=== PATIENT | male | born 1975 | race Caucasian/White ===

== ENCOUNTER 2019-06-21 17:40 | Inpatient (IN) | payer SELFPAY ==
[2019-06-21 17:45] VITALS: BP 154/108; PULSE 104; RESP 16; O2SAT 96; BMI 22.4
--- NOTE | 2019-06-21 17:59 | ED_ITS ---
Entered by Kita Mcbride, acting as scribe for EugenioEmperatriz HPI - Psych General: Chief Complaint: Psychiatric Symptoms Stated Complaint: mhe Time Seen by Provider: 06/21/19 17:56 Source: patient, RN notes reviewed and police Mode of arrival: other (police) Limitations: altered mental status History of Present Illness: HPI Narrative: 43 yo male presents to ED with police for psychiatric care. The patient is rambling and is a poor historian. He does understand that he is here under a court ordered 96 hour hold. The patient did say he has had some family issues. Review of Systems General: Reports: ROS unobtainable due to mental status PFSH ED PFSH: Social History Smoking and tobacco status: current every day smoker Physical Exam Const: COMMON NORMALS: no apparent distress, oriented x3, no limitations, healthy appearing and well nourished EXAM LIMITATIONS: no altered mental status GENERAL APPEARANCE: cooperative, well kempt and well developed ORIENTATION/CONSCIOUSNESS: Yes awake HENMT: COMMON NORMALS: normocephalic, head/scalp atraumatic, hearing grossly normal bilaterally, external ears normal, EAC's normal, external nose normal and moist oral mucous membranes HEAD & SCALP: normal to inspection, normocephalic and atraumatic FACE & SINUS: normal facial exam and face symmetric NOSE: external nose normal and nares normal EXTERNAL EAR: Yes external ears normal EXTERNAL AUDITORY CANAL: EAC's normal MOUTH: oral and palatal mucosa normal and tongue normal Eye: COMMON NORMALS: PERRL, EOMs intact bilaterally, conjunctivae normal and no scleral icterus GENERAL EYE: normal appearance of both eyes and normal light reflex CONJUNCTIVA: Yes conjunctivae normal SCLERA: sclerae normal CORNEA: Yes corneas normal PUPIL: Yes PERRL DIRECT OPHTHALMOSCOPY: Yes normal light reflex Neck/C-Spine: COMMON NORMALS: full ROM, no lymphadenopathy, supple, no meningeal signs and no JVD GENERAL: Yes normal visual inspection and Yes trachea midline CERVICAL SPINE: Yes cervical ROM normal Chest: COMMONS NORMALS: inspection of chest normal and palpation of chest normal Resp: COMMON NORMALS: normal respiratory effort, no retractions, no use of accessory muscles and clear to auscultation bilaterally EFFORT & INSPECTION: Yes able to speak in complete sentences AUSCULTATION: clear to auscultation bilaterally Cardio: COMMON NORMALS: no JVD, regular rate, regular rhythm, S1 normal heart sound, S2 normal heart sound, no gallops, no clicks, no murmurs and no rub JUGULAR VENOUS DISTENTION: no JVD RATE: regular rate RHYTHM: regular rhythm HEART SOUNDS: S1 normal and S2 normal GI: COMMON NORMALS: soft to palpation, non-tender, no hepatosplenomegaly and no masses INSPECTION: Yes normal to inspection PALPATION: Yes soft and Yes no hepatosplenomegaly : COMMON NORMALS: Yes no CVA tenderness BLADDER/KIDNEY EXAM: Yes no CVA tenderness Back/Pelvis: COMMON NORMALS: no CVA tenderness, thoracic and lumbar spine normal to inspection, no thoracic nor lumbar tenderness and thoraco-lumbar ROM normal Extremity: COMMON NORMALS: normal to inspection, full ROM, normal capillary refill, no joint enlargement, no clubbing, cyanosis or edema and no calf tenderness Neuro: COMMON NORMALS: oriented x3, CN's II-XII intact bilaterally, moves all extremities, no focal motor deficits and no sensory deficits noted MENINGEAL SIGNS: Yes no meningeal signs Psych: COMMON NORMALS: mental status grossly normal, thought process normal, cooperative, affect normal, speech normal and activity/motor behavior normal APPEARANCE: Yes well kempt SPEECH: Yes normal speech THOUGHT PROCESS: normal thought process Skin: COMMON NORMALS: no rashes or lesions noted, skin turgor normal, no jaundice, no petechiae and no mottling GENERAL SKIN EXAM: no rashes or lesions noted and turgor normal MDM - Psych MDM Narrative: Medical decision making narrative: The case was reviewed with Dr. Giron and he agrees to accept the patient for admission. Lab Data: Labs: Lab Results 06/21/19 Range/Units 18:20 WBC 11.0 H (4.0-10.0) 10^3/ uL RBC 5.38 H (4.1-5.3) 10^6/u L Hgb 15.8 (11.7-16.6) g/dL Hct 47.2 (42.0-52.0) % MCV 87.7 (80-94) fL MCH 29.4 (28.0-34.0) pg MCHC 33.5 (30.0-36.0) g/dL RDW 12.9 (12.1-15.1) % Plt Count 411 H (130-400) 10^3/c mm MPV 10.9 H (7.4-10.4) fL Neut % (Auto) 63.5 % Lymph % (Auto) 21.5 % [place] % (Auto) 8.8 % Eos % (Auto) 4.7 % Baso % (Auto) 1.2 % Neut # (Auto) 7.0 (1.8-7.7) 10^3/u L Lymph # (Auto) 2.4 (0.8-4.8) 10^3/u L [place] # (Auto) 1.0 H (0.2-0.9) 10^3/u L Eos # (Auto) 0.5 (0.0-0.8) 10^3/u L Baso # (Auto) 0.1 (0.0-0.1) 10^3/u L Nucleated RBC % (a uto) 0 % Nucleated RBCs # 0.0 /100WBC EKG Data^: EKG 1: Attestation: I personally reviewed and interpreted this EKG as follows: EKG interpretation date: 06/21/19 EKG interpretation time: 18:26 Interpretation: Normal sinus rhythm at 86 beats a minute, no acute ST-T wave changes. Discharge Plan Discharge Patient Disposition: Admitted As Inpatient Clinical Impression: Homicidal ideation, Acute psychosis Condition: Stable Coding Level of Care Code ED Chief Hospital Administrator for [facility] The documentation recorded by the Rae mitchell Valerie R, accurately reflects the service I personally performed and the decisions made by Eugenio nichole Eli N
--- NOTE | 2019-06-21 18:01 | ECG_ITS ---
Measurements Intervals [place] Rate: 86 P: 61 [place]: 153 QRS: 77 QRSD: 103 T: 58 QT: 369 QTc: 443 SINUS RHYTHM INTERPRETATION BASED ON A DEFAULT AGE OF 40 YEARS No previous ECG available for comparison Electronically Signed On 06-21-2019 20:18:47 CDT by Kristie Youssef M.D. [id number]
[2019-06-21] MEDS: haloperidol inj 5 mg/mL INJ 1 mL IM (18:16)
[2019-06-21] MEDS: diphenhydrAMINE 50 mg/mL SDV 1mL IM (18:16)
[2019-06-21 18:17] VITALS: O2SAT 96
[2019-06-21 18:29] LABS: Basophils # 0.1 10^3/uL (0.0-0.1); Basophils % 1.2 %; Eosinophils # 0.5 10^3/uL (0.0-0.8); Eosinophils % 4.7 %; Hematocrit 47.2 % (42.0-52.0); Hemoglobin 15.8 g/dL (11.7-16.6); Lymphocytes # 2.4 10^3/uL (0.8-4.8); Lymphocytes % 21.5 %; Mean Corpuscular HGB Conc 33.5 g/dL (30.0-36.0); Mean Corpuscular Hemoglobin 29.4 pg (28.0-34.0); Mean Corpuscular Volume 87.7 fL (80-94); Mean Platelet Volume 10.9 fL (7.4-10.4); Monocytes % 8.8 %; Neutrophils % 63.5 %; Nucleated Red Blood Cells % 0 %; Platelet Count 411 10^3/cmm (130-400); Red Blood Count 5.38 10^6/uL (4.1-5.3); Red Cell Distribution Width 12.9 % (12.1-15.1)
[2019-06-21 18:34] VITALS: BP 138/109; PULSE 75; RESP 16; TEMP 36.4; O2SAT 98
[2019-06-21 18:54] LABS: Alanine Aminotransferase 20 U/L (0-41); Albumin Level 4.7 g/dL (3.5-5.2); Alkaline Phosphatase 84 IU/L (40-130); Anion Gap 20.6 (5-19); Aspartate Amino Transferase 28 U/L (0-40); Blood Urea Nitrogen 19 mg/dL (6-20); Calcium 10.2 mg/dL (8.5-10.5); Carbon Dioxide 20 mmol/L (22-29); Chloride 98 mmol/L (98-107); Globulin 3.3 g/dL (1.3-4.6); Glomerular Filtration Rate 73.8 mL/min (90-130); Glucose 107 mg/dL (65-115); Osmolality Calculated 277 mOsm/kg (285-295); Phenytoin Dilantin 0.8 ug/mL (10-20); Potassium 3.6 mmol/L (3.5-5.1); Sodium 135 mmol/L (136-145); Thyroid Stimulating Hormone 0.99 uIU/mL (0.27-4.20); Total Bilirubin 0.7 mg/dL (0.15-1.2); Valproic Acid Level 2.8 mcg/mL (50-100)
[2019-06-21 18:58] LABS: Acetaminophen < 5.0 ug/mL (10-30); Alcohol Level < 10 mg/dL (0-10); Salicylate < 0.3 mg/dL (3-10)
--- NOTE | 2019-06-21 19:16 | PC.PHAR ---
UNABLE TO OBTAIN AT THIS TIME. HE HAS BEEN MEDICATED AND IS ASLEEP.
[2019-06-21 19:29] LABS: Lithium 0.1 mmol/L (0.6-1.2)
[2019-06-21 19:47] VITALS: BP 134/78; PULSE 88; RESP 16; O2SAT 98
[2019-06-21 20:02] VITALS: BP 123/87; PULSE 86; RESP 19; TEMP 36.8; O2SAT 96
[2019-06-22 06:00] VITALS: BP 117/76; PULSE 70; RESP 18; TEMP 36.8; O2SAT 99
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
[2019-06-22 14:00] VITALS: RESP 19
--- NOTE | 2019-06-22 14:00 | PC.NURSE ---
REFUSED TO LET STAFF OBTAIN VITAL SIGNS
[2019-06-22] MEDS: OLANZapine ODT 5 MG TABLET PO (14:58)
[2019-06-22] MEDS: hyDROXYzine 25 mg Capsule 50 MG PO (14:58)
--- NOTE | 2019-06-22 14:59 | PC.NURSE ---
Addendum entered by Deysi Greene LPN 06/22/19 16:01: prn meds effective no further c/o anxiety or agitation. pt asleep in bed in room currently, resp even et unlabored Original Note: PRN VISTARIL & ZYPREXA ZYDIS VISTARIL 50 MG GIVEN PO PER PT C/O ANXIETY & ZYPREXA ZYDIS 5 MG GIVEN PO PER PT C/O SEVERE AGITATION. PT CAME OUT OF ROOM, YELLING PROFANITIES AT A NURSE THAT WAS ROUNDING IN PT ROOM. PT SLAMMING HIS DOORS & THREATENING TOWARDS STAFF YELLING YOU GET THE FUCK OUT OF MY ROOM WHILE I'M IN THE BATHROOM, YOU MOTHER FUCKER! SECURITY CALLED TO UNIT. PHYSICIAN, PAROLE DIRECTOR, SECURITY TO PT ROOM TO DE-ESCALATE & ENCOURAGE THERAPEUTIC COMMUNICATION. PT OFFERED PRN MEDICATIONS & PT TOOK WILLINGLY. PT ASKED THIS MED NURSE NOW ARE THOSE XANAX? WILL CONT TO MONITOR.
--- NOTE | 2019-06-22 17:22 | PC.NURSE ---
STILL TIRING TO OBTAIN ORDERED URINE SAMPLE. NOTED PATIENT WAS UP TO GO TO BATHROOM. ENTERED ROOM WITH VANESSA Ng TO ASK PATIENT IF HE COULD GIVE US A URINE SAMPLE; ALSO ASKED HIM IF HE WOULD LIKE MORE WATER. PATIENT BEGAN YELLING PROFANITIES, TELLING ME TO EAT A SHIT SANDWICH . I ASKED AGAIN IF HE COULD GIVE US A URINE SAMPLE AT WHICH POINT PATIENT BUSTED THROUGH BATHROOM DOOR CHARGING AND THREATENING ME. HE CONTINUED TO APPROACH ME VERY AGGRESSIVELY I BACKED INTO THE LEYVA. SECURITY WAS CALLED. PATIENT RETURNED TO HIS ROOM SLAMMING HIS DOOR. SECURITY ARRIVED PATIENT SPOKE WITH DEVORAH Rn, dr. Giron and security settled patient.
[2019-06-22 22:00] VITALS: RESP 17
--- NOTE | 2019-06-22 22:08 | PC.NURSE ---
Pt refused vitals. Respirations were taken.
[2019-06-23 06:00] VITALS: RESP 16
--- NOTE | 2019-06-23 06:28 | PC.NURSE ---
Patient refused vitals. Respirations taken.
[2019-06-23] MEDS: hyDROXYzine 25 mg Capsule 50 MG PO (11:27)
--- NOTE | 2019-06-23 12:52 | P.PN_ITS ---
Subjective NPU Subjective: Interval history: Angel presented today and had a fairly rough time interacting with staff and other patients. He struggled to communicate without screaming. When I spoke to him he told some story about only sleeping about 30 minutes a day and that when I came to talk to him it was that 30 minutes. This has been the second or third time that I approached him. One time was when he was having a meltdown related to getting his meal and wanting to eat in his room with the door closed. We discussed the risks benefits and alternatives of starting medications and he responded that I was the doctor and if I thought it was a good idea that he would take it. Medications: Reviewed: Yes Mental Status Exam MSE Comments: This is a well-nourished well-developed white male with limited dress, grooming and eye contact. Toenails painted bright pink. No abnormal movements except for psychomotor agitation. Limited cooperation with exam in mild to severe distress depending on the moment. Speech was increased rate and volume. Mood described as depressed, affect congruent. Thought process mostly organized. Thought content: Patient denied any suicidal or homicidal ideation but did have significant outwardly directed aggression throughout the day, there were no delusions reported but he did appear to have some Persky Seth delusions, he denied any auditory or visual hallucinations. Attention and concentration were limited and memory appeared unreliable but none were formally tested. He is alert and oriented x3. Insight and judgment are impaired. Vitals/I&O/Wt Last Vital Signs Temp 97.8 F 06/23/19 20:18 Pulse 87 06/23/19 20:18 Resp 19 H 06/23/19 20:18 BP 100/64 06/23/19 20:18 Pulse Ox 97 06/23/19 20:18 Home Medications No Known Home Medications 06/23/19 [History Confirmed 06/23/19] Active Medications Acetaminophen (Tylenol) 650 mg PO Q4H PRN PRN Reason: MILD PAIN Last Admin: 06/23/19 14:06 Dose: 650 mg Documented by: Benztropine Mesylate (Cogentin) 1 mg PO BID PRN PRN Reason: Mild Extrapyramidal symptoms Camphor/Menthol/Phenol (Blistex) 1 applic TOPICAL Q1H PRN PRN Reason: DRYNESS Diphenhydramine HCl (Benadryl) 50 mg IM ONCE PRN PRN Reason: Severe Extrapyramidal Symptoms Diphenhydramine HCl (Benadryl) 50 mg IM Q4H PRN PRN Reason: Severe Aggression Haloperidol (Haldol) 5 mg PO Q4H PRN PRN Reason: AGITATION Haloperidol Lactate (Haldol Inj) 5 mg IM Q4H PRN PRN Reason: Severe Aggression Hydroxyzine Pamoate (Vistaril) 50 mg PO Q6H PRN PRN Reason: ANXIETY Last Admin: 06/23/19 11:27 Dose: 50 mg Documented by: Loperamide HCl (Imodium Capsule) 2 mg PO Q6H PRN PRN Reason: DIARRHEA Lorazepam (Ativan) 2 mg IM Q4H PRN PRN Reason: Severe Aggression Nicotine (Nicoderm 21 Mg Patch) 1 patch TRANSDERMA DAILY PRN PRN Reason: NICOTINE WITHDRAWAL Nicotine Polacrilex (Nicorette) 2 mg BUCCAL Q2H PRN PRN Reason: NICOTINE WITHDRAWAL Olanzapine (Zyprexa Zydis) 5 mg PO Q4H PRN PRN Reason: Agitation/Psychosis Last Admin: 06/22/19 14:58 Dose: 5 mg Documented by: Ondansetron HCl (Zofran) 4 mg PO Q6H PRN PRN Reason: NAUSEA AND VOMITING Trazodone HCl (Desyrel) 50 mg PO BEDTIME PRN PRN Reason: SLEEP Last Admin: 06/23/19 21:00 Dose: 50 mg Documented by: Data NPU : 06/21/19 18:20 06/21/19 18:20 A&P Assessment and plan (1) Homicidal ideation: This is a 43-year-old white male with acute psychosis and aggression who presents off of medication but reportedly open to trying medication. 1. Continue current medication. Except: 2. Start Remeron 15 mg p.o. nightly and Abilify 10 mg p.o. every morning. 3. Encouraged individual, group and milieu therapy. 4. Continue to 15-minute checks for safety. Status: Acute Code(s): R45.850 - Homicidal ideations (2) Acute psychosis: Status: Acute Code(s): F23 - Brief psychotic disorder Involuntary Hold Information 96 Hour Hold: 96 Hour Involuntary Admission: Yes 96 Hour Hold Ending Date: 06/27/19 96 Hour Hold Ending Time: 18:00 Attestations NPU Medical Necessity Statement*: Inpatient hospitalization is medically necessary and the clinically appropriate intervention at this time. We will initiate/monitor medications and adjust as indicated. Likely length of stay 3 to 5 days. Coding Level of Care Code Acute Manufacturing Plant Controller for [facility] Diagnoses Homicidal ideation R45.850 Acute psychosis F23
[2019-06-23 14:00] VITALS: BP 122/72; PULSE 82; RESP 18; TEMP 36.4; O2SAT 98
[2019-06-23] MEDS: acetaminophen 325 mg Tablet 650 MG PO (14:06)
[2019-06-23 20:18] VITALS: BP 100/64; PULSE 87; RESP 19; TEMP 36.6; O2SAT 97
[2019-06-23] MEDS: trazodone 50 mg Tablet PO (21:00)
--- NOTE | 2019-06-23 21:00 | PC.NURSE ---
PRN trazodone given at this time.
[2019-06-23 22:10] LABS: Amphetamines Screen Urine Negative (Negative); Barbiturates Screen Urine Negative (Negative); Benzodiazepines Screen Urine Negative (Negative); Cocaine Screen Urine Negative (Negative); Opiate Screen Urine Negative (Negative); PCP Screen Urine Negative (Negative); THC Screen Urine Positive (Negative)
[2019-06-24 06:00] VITALS: BP 109/69; PULSE 63; RESP 19; TEMP 36.6; O2SAT 99
[2019-06-24] MEDS: ARIPiprazole 10 mg Tablet PO (10:02)
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
[2019-06-24] MEDS: OLANZapine ODT 5 MG TABLET PO (13:44)
--- NOTE | 2019-06-24 13:44 | PC.NURSE ---
PRN ZYPREXA ZYDIS ZYPREXA ZYDIS 5MG PO FOR AGITATION/ANXIETY. PATIENT YELLING AND CURSING AT STAFF AND HITTING THINGS IN HIS ROOM. WILL CONTINUE TO MONITOR FOR MEDICATION EFFECTIVENESS.
[2019-06-24 14:00] VITALS: PULSE 75; RESP 20; TEMP 37.1; O2SAT 98
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
--- NOTE | 2019-06-24 14:50 | PC.NURSE ---
PRN ZYPREXA ZYDIS FOLLOW UP MEDICATION EFFECTIVE. PATIENT IS LYING IN BED RESTING. RESPIRATIONS EVEN AND UNLABORED.
[2019-06-24] MEDS: mirtazapine 15 mg Tablet PO (21:12)
--- NOTE | 2019-06-24 21:12 | PC.NURSE ---
Pt given scheduled HS med remeron and PRN med trazodone at this time.
[2019-06-24] MEDS: trazodone 50 mg Tablet PO (21:13)
--- NOTE | 2019-06-24 22:18 | PC.NURSE ---
pt refused vital signs
[2019-06-25 06:00] VITALS: BP 151/99; PULSE 86; RESP 19; TEMP 36.3; O2SAT 117
[2019-06-25] MEDS: ARIPiprazole 10 mg Tablet PO (08:02)
[2019-06-25] MEDS: ondansetron 4 MG Tablet PO ×2 (13:59→19:37)
[2019-06-25 14:00] VITALS: BP 153/74; PULSE 98; RESP 18
--- NOTE | 2019-06-25 14:41 | PM.NPN ---
Subjective NPU Subjective: Interval history: Angel presents today reporting that he is feeling better. This is the first time that I have entered his room, that he did not come at me in some nasty aggressive way. He reports that he thinks the medication is working a little bit and he is sleeping a little better. He is hopeful that he can get a couple of medical concerns taken care of, but he reports that he for now can continue to sleep well and feel better. Mental Status Exam MSE Comments: This is a well-nourished, well-developed, white male, with limited dress, grooming, and eye contact. No abnormal movements except for improving psychomotor retardation. More cooperative with exam in no acute distress. Speech was decreased rate and volume. Mood described as better; affect congruent and less irritable. Thought process, organized. Thought content: patient denied any suicidal or homicidal ideation, there were no delusions reported and he appeared less paranoid. He denied any auditory or visual hallucinations. Attention and concentration were improving, and memory was still unreliable, but none were formally tested. Alert and oriented to person and place. Insight and judgment are impaired but improving. Vitals/I&O/Wt Last Vital Signs Temp 98.1 F 06/25/19 22:00 Pulse 76 06/25/19 22:00 Resp 15 06/25/19 22:00 BP 119/86 06/25/19 22:00 Pulse Ox 98 06/25/19 22:00 Home Medications No Known Home Medications 06/23/19 [History Confirmed 06/23/19] Active Medications Acetaminophen (Tylenol) 650 mg PO Q4H PRN PRN Reason: MILD PAIN Last Admin: 06/23/19 14:06 Dose: 650 mg Documented by: Aripiprazole (Abilify) 10 mg PO DAILY CONNER Last Admin: 06/25/19 08:02 Dose: 10 mg Documented by: Benztropine Mesylate (Cogentin) 1 mg PO BID PRN PRN Reason: Mild Extrapyramidal symptoms Camphor/Menthol/Phenol (Blistex) 1 applic TOPICAL Q1H PRN PRN Reason: DRYNESS Diphenhydramine HCl (Benadryl) 50 mg IM ONCE PRN PRN Reason: Severe Extrapyramidal Symptoms Diphenhydramine HCl (Benadryl) 50 mg IM Q4H PRN PRN Reason: Severe Aggression Haloperidol (Haldol) 5 mg PO Q4H PRN PRN Reason: AGITATION Haloperidol Lactate (Haldol Inj) 5 mg IM Q4H PRN PRN Reason: Severe Aggression Hydroxyzine Pamoate (Vistaril) 50 mg PO Q6H PRN PRN Reason: ANXIETY Last Admin: 06/25/19 16:10 Dose: 50 mg Documented by: Loperamide HCl (Imodium Capsule) 2 mg PO Q6H PRN PRN Reason: DIARRHEA Mirtazapine (Remeron) 15 mg PO BEDTIME CONNER Last Admin: 06/25/19 21:39 Dose: 15 mg Documented by: Nicotine (Nicoderm 21 Mg Patch) 1 patch TRANSDERMA DAILY PRN PRN Reason: NICOTINE WITHDRAWAL Nicotine Polacrilex (Nicorette) 2 mg BUCCAL Q2H PRN PRN Reason: NICOTINE WITHDRAWAL Olanzapine (Zyprexa Zydis) 5 mg PO Q4H PRN PRN Reason: Agitation/Psychosis Last Admin: 06/25/19 17:46 Dose: 5 mg Documented by: Ondansetron HCl (Zofran) 4 mg PO Q6H PRN PRN Reason: NAUSEA AND VOMITING Last Admin: 06/25/19 19:37 Dose: 4 mg Documented by: Trazodone HCl (Desyrel) 50 mg PO BEDTIME PRN PRN Reason: INSOMNIA Data NPU : 06/21/19 18:20 06/21/19 18:20 A&P Assessment and plan (1) Acute psychosis: This is a 43-year-old white male with acute psychosis and aggression who presents off of medication but reportedly open to trying medication. 1. Continue current medication. 2. Encouraged individual, group and milieu therapy. 3. Continue to 15-minute checks for safety. (2) Acute psychosis: Status: Acute Code(s): F23 - Brief psychotic disorder (2) Homicidal ideation: Status: Acute Code(s): R45.850 - Homicidal ideations Involuntary Hold Information 96 Hour Hold: 96 Hour Involuntary Admission: Yes 96 Hour Hold Ending Date: 06/27/19 96 Hour Hold Ending Time: 18:00 Attestations NPU Medical Necessity Statement*: Inpatient hospitalization is medically necessary and the clinically appropriate intervention at this time. We will initiate/monitor medications and adjust as indicated. Likely length of stay 3 to 5 days. Coding Level of Care Code Acute Corporate Communications Specialist for [employer] Diagnoses Acute psychosis F23 Homicidal ideation R45.850
[2019-06-25] MEDS: hyDROXYzine 25 mg Capsule 50 MG PO (16:10)
[2019-06-25] MEDS: OLANZapine ODT 5 MG TABLET PO (17:46)
--- NOTE | 2019-06-25 19:43 | PC.NURSE ---
Pt c/o nausea, reports had emesis times one, Zofran given. Continue to monitor.
[2019-06-25] MEDS: mirtazapine 15 mg Tablet PO (21:39)
[2019-06-25 22:00] VITALS: BP 119/86; PULSE 76; RESP 15; TEMP 36.7; O2SAT 98
[2019-06-26] MEDS: ARIPiprazole 10 mg Tablet PO (08:06)
[2019-06-26] MEDS: acetaminophen 325 mg Tablet 650 MG PO ×2 (08:10→17:58)
[2019-06-26] MEDS: hyDROXYzine 25 mg Capsule 50 MG PO ×3 (08:52→21:15)
--- NOTE | 2019-06-26 09:55 | PM.NPN ---
Subjective NPU Subjective: Interval history: Angel presents today continuing the progress that he made yesterday, being much more approachable, being much less combative. He is somewhat perseverating over his feet. He is requesting that he get Lamisil because he does not feel that the lotion on his feet is effectively penetrating his skin condition as he perceives it. We discussed the fact that we would need to have one of the doctors take a look at it, as my cursory evaluation just shows skin and he perceives it as a fungal infection or something. His mother had reported that he can somewhat perseverate over his feet and wanting them to look pretty and not masculine, which is likely the reason for the pink nail malian on his feet. Otherwise he reports that the medications are working well, he is sleeping well, and denying any issues. Mental Status Exam MSE Comments: This is a well-nourished, well-developed, white male, with limited dress, grooming, hygiene and improving eye contact. No abnormal movements with improving psychomotor retardation. Cooperative with exam in no acute distress. Speech was still slightly decreased rate and volume but improving dramatically. Mood described as better; affect congruent. Thought process, organized. Thought content: patient denied any suicidal or homicidal ideation, there were no delusions reported or noted, patient denied any auditory or visual hallucinations. Attention and concentration were intact and improving. Memory appeared more reliable, but none were formally tested. Alert and oriented times person and place. Insight and judgment are impaired but improving. Vitals/I&O/Wt Last Vital Signs Temp 98.0 F 06/26/19 22:00 Pulse 79 06/26/19 22:00 Resp 21 H 06/26/19 22:00 BP 114/74 06/26/19 22:00 Pulse Ox 96 06/26/19 22:00 Home Medications No Known Home Medications 06/23/19 [History Confirmed 06/23/19] Active Medications Acetaminophen (Tylenol) 650 mg PO Q4H PRN PRN Reason: MILD PAIN Last Admin: 06/26/19 17:58 Dose: 650 mg Documented by: Aripiprazole (Abilify) 10 mg PO DAILY CONNER Last Admin: 06/26/19 08:06 Dose: 10 mg Documented by: Benztropine Mesylate (Cogentin) 1 mg PO BID PRN PRN Reason: Mild Extrapyramidal symptoms Camphor/Menthol/Phenol (Blistex) 1 applic TOPICAL Q1H PRN PRN Reason: DRYNESS Diphenhydramine HCl (Benadryl) 50 mg IM ONCE PRN PRN Reason: Severe Extrapyramidal Symptoms Diphenhydramine HCl (Benadryl) 50 mg IM Q4H PRN PRN Reason: Severe Aggression Haloperidol (Haldol) 5 mg PO Q4H PRN PRN Reason: AGITATION Haloperidol Lactate (Haldol Inj) 5 mg IM Q4H PRN PRN Reason: Severe Aggression Hydroxyzine Pamoate (Vistaril) 50 mg PO Q6H PRN PRN Reason: ANXIETY Last Admin: 06/26/19 21:15 Dose: 50 mg Documented by: Loperamide HCl (Imodium Capsule) 2 mg PO Q6H PRN PRN Reason: DIARRHEA Mirtazapine (Remeron) 15 mg PO BEDTIME CONNER Last Admin: 06/26/19 21:12 Dose: 15 mg Documented by: Nicotine (Nicoderm 21 Mg Patch) 1 patch TRANSDERMA DAILY PRN PRN Reason: NICOTINE WITHDRAWAL Nicotine Polacrilex (Nicorette) 2 mg BUCCAL Q2H PRN PRN Reason: NICOTINE WITHDRAWAL Olanzapine (Zyprexa Zydis) 5 mg PO Q4H PRN PRN Reason: Agitation/Psychosis Last Admin: 06/25/19 17:46 Dose: 5 mg Documented by: Ondansetron HCl (Zofran) 4 mg PO Q6H PRN PRN Reason: NAUSEA AND VOMITING Last Admin: 06/25/19 19:37 Dose: 4 mg Documented by: Trazodone HCl (Desyrel) 50 mg PO BEDTIME PRN PRN Reason: INSOMNIA Data NPU : 06/21/19 18:20 06/21/19 18:20 A&P Additional A&P Information This is a 43-year-old white male with acute psychosis and aggression who presents off of medication but reportedly open to trying medication. 1. Continue current medication. 2. Encouraged individual, group and milieu therapy. 3. Continue to 15-minute checks for safety. Involuntary Hold Information 96 Hour Hold: 96 Hour Involuntary Admission: Yes 96 Hour Hold Ending Date: 06/27/19 96 Hour Hold Ending Time: 18:00 Attestations NPU Medical Necessity Statement*: Inpatient hospitalization is medically necessary and the clinically appropriate intervention at this time. We will initiate/monitor medications and adjust as indicated. Likely length of stay 2-4 days. Coding Level of Care Code Acute Coding Analyst for Gorge Henderson
[2019-06-26 14:00] VITALS: BP 139/86; PULSE 88; RESP 18; TEMP 36.7; O2SAT 96
[2019-06-26] MEDS: mirtazapine 15 mg Tablet PO (21:12)
--- NOTE | 2019-06-26 21:12 | PC.NURSE ---
HS MED REMERON AND PRN VISTERIL GIVEN AT THIS TIME.
[2019-06-26 22:00] VITALS: BP 114/74; PULSE 79; RESP 21; TEMP 36.7; O2SAT 96
[2019-06-27 06:00] VITALS: BP 99/58; PULSE 71; RESP 18; TEMP 36.6; O2SAT 97
[2019-06-27] MEDS: ARIPiprazole 10 mg Tablet PO (09:19)
[2019-06-27] MEDS: ondansetron 4 MG Tablet PO (09:19)
[2019-06-27] MEDS: acetaminophen 325 mg Tablet 650 MG PO (11:31)
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
[2019-06-27 13:47] VITALS: BP 99/58; PULSE 71; RESP 18; TEMP 36.6; O2SAT 97
== END 2019-06-27 14:38 | disposition home or self-care (01) | DRG 885 ==
LOC: ER 19:19 → NP 19:20
PROVIDERS: Emergency Provider Emergency Medicine
DX: F23 Brief psychotic disorder (principal); R45.851 Suicidal ideations; F17.210 Nicotine dependence, cigarettes, uncomplicated
CPT/HCPCS: 12345; 36415; 80053; 80156; 80164; 80178; 80185; 80306; 80307; 84443; 85025; 93005; 96372; 99284; J1200; J1630; Q0162